=== PATIENT | male | born 2000 | race Caucasian/White ===

== ENCOUNTER 2025-01-31 20:29 | Emergency (ER) | payer OTHER ==
[~2025-01-31] VITALS: Ht 172.7 cm; Wt 109.5 kg
[2025-01-31] MEDS ORDERED: LACTATED RINGER'S 1,000 ML IV ONE (20:45)
[2025-01-31] MEDS ORDERED: ondansetron HCL 4 MG/2 ML VIAL IV ONE (20:45)
[2025-01-31] MEDS ORDERED: KETOROLAC TROMETHAMINE 30 MG/ML VIAL IV ONE (20:45)
[2025-01-31 20:51] LABS: BASOPHILS 0.4 % (0-2); EOSINOPHILS 2.6 % (0-6); HEMATOCRIT 38.7 % (35.0-50.0); HEMOGLOBIN 13.8 g/dL (12.0-18.0); LYMPHOCYTES 46.3 % (24-44); MCH 32.3 (27-36); MCHC 35.7 g/dl (30-36); MCV 90.3 fl (81-99); MONOCYTES 8.6 % (0-12); NEUTROPHILS 42.1 % (39-80); PLATELET COUNT 248 K/uL (140-440); RBC 4.29 M/ul (4.3-5.7); RDW 12.6 (10.5-15.0)
[2025-01-31 21:04] LABS: ALBUMIN/GLOBULIN RATIO 1.38 (1.1-2.4); ALCOHOL, MEDICAL <3 ng/dL (<3); ALKALINE PHOSPHATASE 66 U/L (46-116); ALT (SGPT) 34 U/L (14-59); ANION GAP 11.9 (7-21); AST (SGOT) 14 U/L (15-37); BILIRUBIN, TOTAL 0.2 mg/dL (0.2-1.0); BUN/CREATININE RATIO 19.48 (6.0-28.6); CALCIUM 8.7 mg/dL (8.5-10.1); CARBON DIOXIDE 28 mmol/L (21-32); CHLORIDE 106 mmol/L (98-107); CREATININE, SERUM 0.77 mg/dL (0.70-1.30); GLOMERULAR FILTRATION RATE,EST 128 mL/min (>60); POTASSIUM 3.9 mmol/L (3.5-5.1); PROTEIN, TOTAL 6.9 g/dL (6.4-8.2); UREA NITROGEN 15 mg/dL (7-18)
[2025-01-31 22:30] VITALS: BP 110/74
[2025-01-31 23:11] LABS: AMPHETAMINES, URINE NEGATIVE (NEGATIVE); BARBITURATES, URINE NEGATIVE (NEGATIVE); BENZODIAZEPINE, URINE NEGATIVE (NEGATIVE); BUPRENORPHINE, URINE POSITIVE (NEGATIVE); CANNABINOID, URINE NEGATIVE (NEGATIVE); COCAINE, URINE NEGATIVE (NEGATIVE); ECSTASY, URINE NEGATIVE (NEGATIVE); FENTANYL, URINE NEGATIVE (NEGATIVE); METHADONE, URINE NEGATIVE (NEGATIVE); OPIATES, URINE NEGATIVE (NEGATIVE); OXYCODONE, URINE NEGATIVE (NEGATIVE); PHENCYCLIDINE, URINE NEGATIVE (NEGATIVE)
== END 2025-01-31 22:30 | disposition other institution, planned readmission (95) ==
LOC: ED 20:29
PROVIDERS: Internal Medicine
DX: M54.50 Low back pain, unspecified (principal); M54.2 Cervicalgia; W06.XXXA Fall from bed, initial encounter
CPT/HCPCS: 36415; 70450; 72125; 72128; 72131; 80053; 80307; 85025; 96374; 96375; 99285-25; G0480; J1885; J2405; J7121

== ENCOUNTER 2025-04-29 13:17 | Emergency (ER) | payer OTHER ==
[~2025-04-29] VITALS: Ht 172.7 cm; Wt 101.6 kg
[2025-04-29] MEDS ORDERED: SUBOXONE 2 MG-1 EAC2 SL (13:27)
[2025-04-29] MEDS ORDERED: ZOLOFT25 MG PO (13:27)
[2025-04-29] MEDS ORDERED: DIPHTH,PERTUSS(ACELL),TET VAC 0.5 ML SYRINGE IM ONE (14:15)
[2025-04-29 16:22] VITALS: BP 146/83
== END 2025-04-29 16:27 | disposition home or self-care (01) ==
LOC: ED 13:17
DX: S01.01XA Laceration without foreign body of scalp, initial encounter (principal); W01.0XXA Fall on same level from slipping, tripping and stumbling without subsequent striking against object, initial encounter; Z79.899 Other long term (current) drug therapy
CPT/HCPCS: 12002; 70450; 71046; 72125; 90471; 90715; 99284-25